=== PATIENT | male | born 1935 | race Caucasian/White ===

== ENCOUNTER 2018-08-16 20:07 | Inpatient (IN) | payer MEDICARE, MEDICAID ==
[~2018-08-16] VITALS: Ht 177.8 cm; Wt 98.4 kg
[~2018-08-16 20:07] MED LIST: A-CARO-2525000 UNIT PO; ATENOLOL; ATENOLOL 25 MG25 M1 PO; ATENOLOL 25MG T25 M1; BLOOD PRESSURE MED; CALCIUM 600 +1 EAC5 PO; CHOLESTEROL MED?; FIBER350 GM; FISHOIL PO; GLIPIZIDE 10 MG10 MG PO; GLUCOPHAGE1000 MG; GLUCOTROL10 MG; NUTRITIONAL SUPPLEME; PLAVIX 75 MG TA75 MG; PRAVACHOL40 MG PO; PREVACID 30MG C30 M1 PO; VITAMIN E400 UNIT PO; VITAMINC500 PO
[2018-08-16 20:17] VITALS: BP 163/79
[2018-08-16] MEDS ORDERED: VITAMIN D31000 UNI2 PO (20:23)
[2018-08-16] MEDS ORDERED: TRAZODONE HCL50 MG PO (20:24)
[2018-08-16] MEDS ORDERED: ATIVAN0.5 MG PO (20:28)
[2018-08-16] MEDS ORDERED: TYLENOL325 MG PO (20:28)
[2018-08-16] MEDS ORDERED: LASIX 20 MG TAB20 MG PO (20:29)
[2018-08-16] MEDS ORDERED: PEPCID20 MG PO (20:29)
[2018-08-16 20:49] LABS: HEMATOCRIT 41.5 % (42.0-52.0); HEMOGLOBIN 13.6 gm/dL (14.0-18.0); MCH 28.8 pg (26.0-34.0); MCHC 32.6 g/dL (28.0-37.0); MCV 88.3 fL (80.0-100.0); MPV 6.8 fl. (7.2-11.1); NUCLEATED RBCS 0 /100WBC; PLATELET COUNT* 269 thou/uL (150-400); RDW-CV 13.9 % (10.5-14.5); WBC 15.2 thou/uL (4.0-11.0)
[2018-08-16 20:59] LABS: APTT 27.3 Seconds (25.0-31.3)
[2018-08-16 21:00] LABS: URINE BILIRUBIN NEGATIVE (Negative); URINE BLOOD 1+ (Negative); URINE CLARITY CLEAR; URINE COLOR YELLOW; URINE GLUCOSE-RANDOM 1+ (Negative); URINE KETONES NEGATIVE (Negative); URINE LEUKOCYTES-REFLEX NEGATIVE (Negative); URINE NITRITE-REFLEX NEGATIVE (Negative); URINE PROTEIN 1+ (Negative)
[2018-08-16 21:10] LABS: ANION GAP 11 mmol/L (7-16); BUN 17 mg/dL (7-18); CALCIUM 8.4 mg/dL (8.5-10.1); CHLORIDE 96 mmol/L (98-107); CO2 25 mmol/L (21-32); CREATININE 1.3 mg/dL (0.6-1.3); GLUCOSE 191 mg/dL (70-99); POTASSIUM 4.7 mmol/L (3.5-5.1); SODIUM 132 mmol/L (136-145)
[2018-08-16 21:18] LABS: ALBUMIN 3.4 g/dL (3.4-5.0); ALKALINE PHOSPHATASE 86 U/L (46-116); NT-PRO BRAIN NAT PEPTIDE 197 pg/mL (<300); SGOT 27 U/L (15-37); SGPT 27 U/L (30-65); TOTAL BILIRUBIN 0.5 mg/dL (<0.1-1.0); TROPONIN-I LEVEL <0.06 ng/mL (<0.06)
[2018-08-16 21:24] LABS: CASTS None Seen /LPF (None Seen); SQUAMOUS 0-3 Few /LPF (0-3)
[2018-08-16 21:25] LABS: URINE RBC 3-10 Few /HPF (0-2); URINE WBC-REFLEX 0-5 Rare /HPF (0-5)
[2018-08-16 21:26] LABS: BACTERIA-REFLEX 1-9 Few /HPF (None Seen)
[2018-08-16 21:27] LABS: CRYSTALS None Seen /LPF (None Seen); RENAL EPITHELIAL CELLS 0-3 Few /LPF (None Seen); TRANSITIONAL EPITHEL CELL 0-3 Few /LPF (None Seen)
[2018-08-16 21:30] LABS: ABSOLUTE EOSINOPHILS 0.2 thou/uL (0.0-0.7); ABSOLUTE LYMPHOCYTES 0.8 thou/uL (0.8-5.3); ABSOLUTE MONOCYTES 0.5 thou/uL (0.0-1.2); ABSOLUTE NEUTROPHILS 13.8 thou/uL (1.6-8.1)
[2018-08-16 21:31] LABS: PLATELET ESTIMATE ADEQUATE
[2018-08-16 23:20] VITALS: BP 116/95
[2018-08-17] VITALS (7 sets, daily range): BP systolic 90–120; BP diastolic 48–60
[2018-08-17] MEDS ORDERED: LANTUS SUBQ (07:56)
[2018-08-17] MEDS ORDERED: ASPIR 8181 M1 PO (07:57)
[2018-08-17] MEDS ORDERED: MILK OF MA400 MG/5 M PO (07:59)
[2018-08-17] MEDS ORDERED: CAL-GEST200 MG PO (07:59)
[2018-08-17] MEDS ORDERED: [UNRECOGNIZED DRUG - OTHER] PO (08:01)
--- NOTE | 2018-08-17 08:08 | NUR ---
PT TO FLOOR APROX 2340, AND ASSUMED CARE. PT ALERT TO SELF ONLY. PT IMPULSIVE AND REMOVES HEART MONITOR AND IV. REDNESS AND DRY SKIN WARM TO TOUCH NOTED ON BILAT ANKLES. VITALS WNL. 2-4L O2 NC. BED REST. SEE MAR. SEE CHARTING. FALL PRECAUTIONS IN PLACE. HOURLY ROUNDING FOR SAFETY.
--- NOTE | 2018-08-17 13:06 | EKG ---
[place] [address] ELECTROCARDIOGRAM REPORT Name: ARLENE GONZALEZ Room: [address] ADM IN .R.#: [id number] Admission: 08/16/18 Attend Phys: Alan Murillo Discharge: Date of : 33 Report #: [id number] THIS REPORT FOR: //name// [facility] ED Test Date: 2018-08-16 Test Time: 21:09:20 Pat Name: ARLENE DOS SANTOSBerkley Department: Room: [facility] Gender: M Microphone Operator: BEATRICE : 1935 Requested By: Russell Addison Order Number: [id number] MD: Franklin Uribe Measurements Intervals [place] Rate: 124 P: -1 [place]: 139 QRS: -39 QRSD: 108 T: 69 QT: 323 QTc: 464 Interpretive Statements Sinus tachycardia Ventricular premature complex Left axis deviation Abnormal R-wave progression, late transition Borderline repolarization abnormality Compared to ECG 01/20/2011 05:07:15 Ventricular premature complex(es) now present rate increased Electronically Signed On 08-17-2018 13:05:57 CDT by Franklin Uribe [email or web address] <ELECTRONICALLY SIGNED> By: Franklin Uribe MD, [facility] 08/17/18 1305 08 08 Franklin Uribe MD, [facility] /EPI
--- NOTE | 2018-08-17 15:24 | NUR ---
Spoke with Francine at [facility], Pt is a LTC resident there. Francine stated that Pt is normally more A&O, but currently Pt is A&Ox1 per nursing. Pt is wc bound, able to complete transfers with assist. Pt requires assist with all IADLS. Pt is able to feed himself. Pt has been declining over the past few months. Supportive son that is involved in POC. CM left message for Pt's son. Per Francine, son works during the day. [facility] is able to accept Pt back at discharge. Following.
--- NOTE | 2018-08-17 18:40 | NUR ---
RECEIVED REPORT FROM WILL RN. ASSUMED CARE OF PT AROUND 0730. PT DROWSY, BUT EASILY AROUSABLE. ORIENTED TO SELF ONLY. PLEASANT BUT CONFUSED AND FORGETFULL. PT VERY DISORIENTED THIS AM UPON WAKING - PULLED OUT HIS IV TWO SEPARATE TIMES AND TOOK HEART MONITOR OFF. EASY TO REDIRECT. PT FLAGGED POSITIVE FOR SEPSIS THIS AM - DR BAXTER NOTIFIED. PT ALREADY ON FLUIDS AND ANTIBIOTICS. NO NEW ORDERS RECEIVED. PT MADE M/S STATUS. AM ASSESSMENT AND VITALS COMPLETED CHARTED. IV TO RIGHT HAND INTACT AND INFUSING IVF. PT HAS DENIED PAIN OR DISCOMFORT THIS SHIFT. LOW GRADE TEMP TREATED WITH TYLENOL. PT BEING TURNED Q2HRS FOR COMFORT. ADMISSION PICS TAKEN OF LEFT ARM AND BILATERAL LEGS. FAMILY VISTED THIS EVENING. PT ASSISTED WITH MEALS - REQUIRES SET-UP. BP'S SOFT THIS AM, BUT CAME UP THROUGHOUT THE DAY. PT INCONTINENT OF URINE - PT CLEANED UP AND LINENS CHANGED NEEDED. PT HAS IMPROVED THROUGHOUT SHIFT, BECAME MORE ALERT. PT CURRENTLY RESTING IN BED. CALL LIGHT IS WITHIN REACH. HOURLY ROUNDING PERFORMED. FALL PRECAUTIONS IN PLACE. PT TO TRANSFER TO ROOM 110 AT SHIFT CHANGE. WILL CALL REPORT TO NIGHT RN.
--- NOTE | 2018-08-18 04:26 | NUR ---
PATIENT RESTING QUIETLY THIS AM ON HOURLY ROUNDS. LARGE EMESIS X1 AND NAUSEATED THROUGHOUT THE NIGHT. PHYSICIAN CONTACTED, ORDERS RECEIVED FOR ZOFRAN. ABDOMEN IS SOFT AND DISTENDED. DENIES PAIN. INCONTINENT OF URINE. VITALS STABLE ON ROOM AIR. WILL CONTINUE TO MONITOR.
[2018-08-18 11:10] VITALS: BP 165/92
[2018-08-18 16:32] VITALS: BP 147/76
--- NOTE | 2018-08-18 16:51 | NUR ---
ASSUMED CARE OF PATIENT AFTER MORNING REPORT. ALERT AND ORIENTED X4. ASSESSMENT COMPLETED AND CHARTED. VSS ON ROOM AIR. FLUIDS AND ANTIBIOTICS INFUSED ORDERED. PATIENT HAD NO COMPLAINTS OF PAIN, NAUSEA, OR SOA ON MORNING ASSESSMENT. PATIENT WORKED WELL WITH THERAPIES TODAY. PATIENTS RIGHT LOWER EXTREMITY DISPLAYS REDNESS, WARM TO THE TOUCH AND CAUSING PAIN TO THE PATIENT. DR BAXTER PAGED AND ULTRASOUND OF THE LOWER EXTREMITY ORDERED. AWAITING COMPLETION AND RESULTS. HOURLY ROUNDS MAINTAINED, CALL LIGHT WITHIN REACH. NURSING WILL CONTINUE TO MONITOR.
[2018-08-18 20:00] VITALS: BP 150/74
[2018-08-19 04:19] VITALS: BP 149/76
[2018-08-19 04:20] LABS: HEMATOCRIT 31.6 % (42.0-52.0); MCH 29.4 pg (26.0-34.0); MCHC 33.8 g/dL (28.0-37.0); MPV 7.2 fl. (7.2-11.1); RBC 3.63 mil/uL (4.50-6.00); RDW-CV 14.2 % (10.5-14.5); WBC 8.3 thou/uL (4.0-11.0)
[2018-08-19 04:34] LABS: ALBUMIN 2.2 g/dL (3.4-5.0); CALCIUM 8.1 mg/dL (8.5-10.1); CREATININE 1.3 mg/dL (0.6-1.3); MAGNESIUM 1.7 mg/dL (1.8-2.4); POTASSIUM 3.8 mmol/L (3.5-5.1); TOTAL BILIRUBIN 0.5 mg/dL (<0.1-1.0); TOTAL PROTEIN 5.3 g/dL (6.4-8.2)
[2018-08-19 04:40] LABS: HEMOGLOBIN 10.7 gm/dL (14.0-18.0)
--- NOTE | 2018-08-19 05:18 | NUR ---
PATIENT SLOWLY PROGRESSING TOWARDS. PT ABLE TO SLEEP THROUGHOUT SHIFT. BECAME INCREASINGLY COMFUSED AT NIGHT. PT PULLED OUT HIS IV. NEW IV STARTED. RECIEVED Q2H TURNS, FULL BED LINEN CHANGE. ORIENT TO SELF AND PLACE ONLY. WILL CONTINUE TO MONITOR. NO VOICED CONCERNED AT THIS TIME.
[2018-08-19 10:11] VITALS: BP 173/80
[2018-08-19 15:42] VITALS: BP 224/108
--- NOTE | 2018-08-19 15:43 | NUR ---
WOUND CARE NOTE: CONSULT RECEIVED FOR VENOUS STASIS BLE PATIENT WITH 2-3+ EDEMA TO BLE R WORSE THAN L. RIGHT LEG WITH REDNESS, WARM TO TOUCH. FEET ARE QUITE EDEMATOUS 3-4+ AND ARE DRY AND FLAKEY. PALPABLE PEDAL PULSES BILATERALLY. PATIENT CURRENTLY SITTING WITH BILATERAL LEGS ELEVATED IN RECLINER. CALF MEASUREMENT IS 34CM BILATERALL. MEASURED FOR SIZE F TUBIGRIPS. THESE WERE GIVEN TO PATIENT'S RN FOR PLACEMENT. RECOMMEND ELEVATE BLE DOUBLE LAYER TUBIGRIP-REMOVE AND REPLACE DAILY
--- NOTE | 2018-08-19 16:40 | NUR ---
ASSUMED CARE OF PATIENT AFTER MORNING REPORT AT APPROX 0720. ALERT AND ORIENTED X 2-3, SOME FORGETFULNESS BUT NOT IMPULSIVE. ASSESSMENT COMPLETED AND CHARTED. VSS ON ROOM AIR. NO COMPLAINTS OF NAUSEA, PAIN, OR SOA THIS SHIFT. BLOOD SUGARS HAVE BEEN GOOD TODAY, NOT REQUIRING INSULIN THIS SHIFT. PATEINTS BLOOD PRESSURE WAS HIGH 224/108. PAGED DR BAXTER AND GOT AN ORDER FOR CATAPRESS, JUST GAVE THIS AND WILL RECHECK BP. TUBIGRIPS APPLIED TO BILAT LOWER EXTREMITIES THIS AFTERNOON. PATIENT RESTING IN THE CHAIR AT THIS TIME. HOURLY ROUNDS MAINTAINED, CALL LIGHT IN REACH, NURSING WILL CONTINUE TO MONITOR.
[2018-08-19 18:55] VITALS: BP 197/98
[2018-08-19 20:00] VITALS: BP 182/86
[2018-08-19 23:30] VITALS: BP 137/60
[2018-08-20 03:51] VITALS: BP 105/45
[2018-08-20 07:40] VITALS: BP 144/74
--- NOTE | 2018-08-20 07:59 | NUR ---
Oriented x 2 and was cooperative but not exactly seemingly pleased with staff at start of shift. He has had a very poor appetite, blood sugars have only been about 90's. 1/2 lantus dose given last evening. He is incontinent of bowel and bladder and has been changed and turned, skin is intact on bottom. BP was elevated and clonidine was ordered, it has improved, clonidine was held this am. I spoke with patient's son last eveing about his confusion and temperment. I explained that sometimes older patient's get confused at bedtime, the son said this was new. Daytime nurse did call digestion operator doctor but no new orders were recieved. The son was also upset about something he thought he overheard, it was reported to state tested nursing assistant. Patient is alert this am and very cooperative and pleasant.
[2018-08-20] MEDS ORDERED: IPRAT-ALBUT 0.5-3 ML INH (09:25)
[2018-08-20] MEDS ORDERED: KLOR-CON 1010 MEQ PO (09:25)
[2018-08-20] MEDS ORDERED: CLONIDINE0.1 PO (09:25)
[2018-08-20] MEDS ORDERED: LEVAQUIN 500 M500 M1 PO (09:25)
[2018-08-20 11:11] VITALS: BP 144/74
--- NOTE | 2018-08-20 11:15 | NUR ---
PT.BEING DISCHARGED TODAY BACK TO [facility]. HE HAS SKILLED ORDERS. FAXED DISCHARGE SUMMARY,WOUND NURSE NOTE AND WOUND CARE ORDER TO [phone]. NOTIFIED [facility]. THEY DO NOT HAVE TRANSPORTATION TODAY. CM SET UP WC VAN WITH [facility] TRANSPORTATION FOR 1:00-1:30. SISTER AND MARK IN ROOM. NOTIFIED THEM THAT PT.GOING BACK TO [place] TODAY. CM ALSO CALLED [facility]. LEFT MESSAGE. CHART COPIED BY Zeenat STALLWORTH RN WILL CALL REPORT.
[2018-08-20 13:41] VITALS: BP 144/74
--- NOTE | 2018-08-20 15:01 | NUR ---
PATIENT HAS BEEN ALERT AND ORIENTED TODAY. UP WITH MAX ASSIST OF TWO. VITAL SIGNS STABLE ON ROOM AIR TODAY. NO COMPLAINTS OF ANY PAIN TODAY. PATIENT IS BEING DISCHARGED TODAY BACK TO [facility]. REPORT GIVEN TO DANIELLE WITH QUESTIONS ANSWERED FOR PATIENT. PATIENT LEFT VIA WHEEL CHAIR WITH TRANSPORTER BACK TO HALF-WAY.
== END 2018-08-20 14:00 | DRG 193 ==
LOC: M.ERS 20:07 → M.2W 22:04 → M.TBA-ER 22:04 → M.2W 23:16 → M.ORTHSURG 08-17 19:12
PROVIDERS: Emergency Medicine Emergency Medical Services; Internal Medicine; ADMIT Internal Medicine
DX: J18.9 Pneumonia, unspecified organism (principal); G92 Toxic encephalopathy; E87.2 Acidosis; R65.10 Systemic inflammatory response syndrome (SIRS) of non-infectious origin without acute organ dysfunction; I10 Essential (primary) hypertension; E11.9 Type 2 diabetes mellitus without complications; K21.9 Gastro-esophageal reflux disease without esophagitis; F03.90 Unspecified dementia, unspecified severity, without behavioral disturbance, psychotic disturbance, mood disturbance, and anxiety; Y95 Nosocomial condition; I87.8 Other specified disorders of veins; Z86.73 Personal history of transient ischemic attack (TIA), and cerebral infarction without residual deficits; Z90.49 Acquired absence of other specified parts of digestive tract; Z79.899 Other long term (current) drug therapy; Z79.4 Long term (current) use of insulin; Z79.82 Long term (current) use of aspirin

== ENCOUNTER 2018-12-04 16:04 | Emergency (ER) | payer MEDICARE, MEDICAID ==
[~2018-12-04] VITALS: Ht 177.8 cm; Wt 95.7 kg
[~2018-12-04 16:04] MED LIST changes: +ASPIR 8181 M1 PO; +ATIVAN0.5 MG PO; +CAL-GEST200 MG PO; +CLONIDINE0.1 PO; +IPRAT-ALBUT 0.5-3 ML INH; +KLOR-CON 1010 MEQ PO; +LANTUS SUBQ; +LASIX 20 MG TAB20 MG PO; +LEVAQUIN 500 M500 M1 PO; +MILK OF MA400 MG/5 M PO; +PEPCID20 MG PO; +TRAZODONE HCL50 MG PO; +TYLENOL325 MG PO; +VITAMIN D31000 UNI2 PO; +[UNRECOGNIZED DRUG - OTHER] PO
[2018-12-04] MEDS ORDERED: LANTUS SUBQ (16:08)
[2018-12-04] MEDS ORDERED: ARTIFICIAL TEA1 EACH OPHTHALMIC (16:10)
[2018-12-04 16:31] LABS: ABSOLUTE EOSINOPHILS 0.3 thou/uL (0.0-0.7); ABSOLUTE LYMPHOCYTES 1.3 thou/uL (0.8-5.3); ABSOLUTE MONOCYTES 0.6 thou/uL (0.0-1.2); ABSOLUTE NEUTROPHILS 4.1 thou/uL (1.6-8.1); BASOPHILS 0.2 %; EOSINOPHILS 4.6 %; LYMPHOCYTES 20.3 %; MCHC 33.3 g/dL (28.0-37.0); MCV 87.1 fL (80.0-100.0); MONOCYTES 9.9 %; MPV 7.1 fl. (7.2-11.1); NUCLEATED RBCS 0 /100WBC; PLATELET COUNT* 274 thou/uL (150-400); RBC 4.82 mil/uL (4.50-6.00); RDW-CV 14.5 % (10.5-14.5); WBC 6.3 thou/uL (4.0-11.0)
[2018-12-04 16:35] LABS: CALCIUM 9.3 mg/dL (8.5-10.1); CREATININE 1.5 mg/dL (0.6-1.3); POTASSIUM 4.2 mmol/L (3.5-5.1)
[2018-12-04 16:40] LABS: ALBUMIN 3.9 g/dL (3.4-5.0); TOTAL BILIRUBIN 0.4 mg/dL (<0.1-1.0)
[2018-12-04 16:46] LABS: ALCOHOL < 10 mg/dL (<10); SALICYLATE < 2.8 mg/dL (2.8-20.0)
[2018-12-04 16:47] LABS: ACETAMINOPHEN < 2 ug/mL (10-30)
[2018-12-04 17:31] LABS: URINE BILIRUBIN NEGATIVE (Negative); URINE BLOOD NEGATIVE (Negative); URINE CLARITY CLEAR; URINE COLOR YELLOW; URINE GLUCOSE-RANDOM NEGATIVE (Negative); URINE KETONES NEGATIVE (Negative); URINE LEUKOCYTES-REFLEX NEGATIVE (Negative); URINE NITRITE-REFLEX NEGATIVE (Negative); URINE PROTEIN NEGATIVE (Negative); URINE UROBILINOGEN 0.2 E.U./dl (0.2-1.0)
[2018-12-04 17:41] LABS: AMP/METHAMP Negative (Negative); BARBITURATES Negative (Negative); BENZODIAZEPINES Negative (Negative); COCAINE Negative (Negative); METHADONE Negative (Negative); OPIATES Negative (Negative); PCP Negative (Negative); THC Negative (Negative)
[2018-12-04 21:25] VITALS: BP 163/75
== END 2018-12-04 21:33 | disposition still patient (30) ==
LOC: M.ERS 16:04
PROVIDERS: Emergency Medicine Emergency Medical Services
DX: F03.90 Unspecified dementia, unspecified severity, without behavioral disturbance, psychotic disturbance, mood disturbance, and anxiety (principal); F32.9 Major depressive disorder, single episode, unspecified; E11.9 Type 2 diabetes mellitus without complications; I10 Essential (primary) hypertension; K21.9 Gastro-esophageal reflux disease without esophagitis; Z90.49 Acquired absence of other specified parts of digestive tract; Z86.73 Personal history of transient ischemic attack (TIA), and cerebral infarction without residual deficits; Z79.4 Long term (current) use of insulin; Z79.899 Other long term (current) drug therapy

== ENCOUNTER 2019-04-17 16:26 | Inpatient (IN) | payer MEDICARE, MEDICAID ==
[~2019-04-17] VITALS: Ht 177.8 cm; Wt 90.7 kg
--- NOTE | ~2019-04-17 | PROC ---
[address] [address] PROCEDURE REPORT Name: ARLENE GONZALEZ Room: [address] IN .R.#: [id number] Admission: 04/17/19 Attend Phys: Nilo Lala MD Discharge: Date of : 34 Report #: [id number] THIS REPORT FOR: //name// For GI report, please see the Provation report in Perceptive 7 content. By: 0704Medical Records Staff JANE /SHANTHI
[~2019-04-17 16:26] MED LIST changes: +ARTIFICIAL TEA1 EACH OPHTHALMIC; -ASPIR 8181 M1 PO; +ST. JOSEPH ASPI81 MG PO
[2019-04-17 16:28] VITALS: BP 138/57
[2019-04-17 17:01] LABS: HEMATOCRIT 41.9 % (42.0-52.0); HEMOGLOBIN 14.2 gm/dL (14.0-18.0); MCH 30.1 pg (26.0-34.0); MCHC 33.9 g/dL (28.0-37.0); MCV 88.7 fL (80.0-100.0); MPV 6.8 fl. (7.2-11.1); NUCLEATED RBCS 0 /100WBC; PLATELET COUNT* 286 thou/uL (150-400); RBC 4.72 mil/uL (4.50-6.00); RDW-CV 14.2 % (10.5-14.5); WBC 8.4 thou/uL (4.0-11.0)
[2019-04-17] MEDS ORDERED: ATENOLOL 50MG T50 M1 PO (17:03)
[2019-04-17] MEDS ORDERED: WELLBUTRIN XL150 MG PO (17:04)
[2019-04-17] MEDS ORDERED: BRINTELLIX10 MG PO (17:06)
[2019-04-17 17:15] LABS: ANION GAP 8 mmol/L (7-16); BUN 36 mg/dL (7-18); CALCIUM 9.4 mg/dL (8.5-10.1); CHLORIDE 97 mmol/L (98-107); CO2 31 mmol/L (21-32); CREATININE 1.8 mg/dL (0.6-1.3); GLUCOSE 54 mg/dL (70-99); POTASSIUM 4.2 mmol/L (3.5-5.1); PROTIME 10.4 Seconds (9.20-11.50); SODIUM 136 mmol/L (136-145)
[2019-04-17 17:30] LABS: ALKALINE PHOSPHATASE 71 U/L (46-116); NT-PRO BRAIN NAT PEPTIDE 2520 pg/mL (<300); SGOT 38 U/L (15-37); SGPT 41 U/L (30-65); TOTAL BILIRUBIN 1.4 mg/dL (<0.1-1.0); TOTAL PROTEIN 7.5 g/dL (6.4-8.2); TROPONIN-I LEVEL <0.06 ng/mL (<0.06)
[2019-04-17 17:37] LABS: ABSOLUTE LYMPHOCYTES 0.7 thou/uL (0.8-5.3); ABSOLUTE MONOCYTES 0.3 thou/uL (0.0-1.2); ABSOLUTE NEUTROPHILS 7.4 thou/uL (1.6-8.1)
[2019-04-17 17:39] LABS: PLATELET ESTIMATE ADEQUATE
--- NOTE | 2019-04-17 18:57 | NUR ---
ASSUMMED CARE OF PATIENTS
--- NOTE | 2019-04-17 19:14 | NUR ---
DISCUSSED BED SITUATION WITH SIMONIZER LEADED GLASS INSTALLER STATES THAT THERE CURRENTLY AREN'T BEDS AVAILABLE IN HOUSE. PLANS WILL BE FOR BOARDING PTS.
[2019-04-17 20:15] VITALS: BP 109/32
[2019-04-17 20:24] VITALS: BP 117/72
[2019-04-18] VITALS: BP 126/59
[2019-04-18 04:00] VITALS: BP 131/63
[2019-04-18 04:57] LABS: ABSOLUTE LYMPHOCYTES 0.6 thou/uL (0.8-5.3); ABSOLUTE MONOCYTES 0.9 thou/uL (0.0-1.2); ABSOLUTE NEUTROPHILS 8.2 thou/uL (1.6-8.1); BASOPHILS 0.1 %; HEMATOCRIT 33.6 % (42.0-52.0); LYMPHOCYTES 5.9 %; MCH 30.1 pg (26.0-34.0); MCV 88.6 fL (80.0-100.0); MONOCYTES 9.3 %; NUCLEATED RBCS 0 /100WBC; PLATELET COUNT* 252 thou/uL (150-400); POLYS 84.7 %; RBC 3.79 mil/uL (4.50-6.00); RDW-CV 14.1 % (10.5-14.5); WBC 9.7 thou/uL (4.0-11.0)
[2019-04-18 05:08] LABS: CALCIUM 7.6 mg/dL (8.5-10.1); CREATININE 1.5 mg/dL (0.6-1.3); POTASSIUM 3.5 mmol/L (3.5-5.1)
[2019-04-18 05:13] LABS: HEMOGLOBIN 11.4 gm/dL (14.0-18.0)
[2019-04-18 08:00] VITALS: BP 126/61
--- NOTE | 2019-04-18 08:25 | NUR ---
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 HE IS ABLE TO COMMUNICATE HIS NEEDS TO STAFF EFFECTIVELY. HE HAS DENIED THE NEED FOR PAIN MEDICATION UP TO THIS TIME. HE WAS INITIALLY RELUCTANT TO KEEP O2 ON LAST NIGHT, BUT HAS BEEN BETTER AT KEEPING IN ON THIS MORNING. GI CONSULTED; HE HAS NOT HAD ANY EMESIS SINCE BEING ADMITTED UP TO 0700.
--- NOTE | 2019-04-18 11:00 | NUR ---
ASSUMED PT CARE AT 0730. AOX2, BEDREST, O2 SAT AT 90'S NC 2L. PT NPO, NIGHT PER BEDSIDE SWALLOW SHOW SOME ASPIRATION. FOR SPEECH THERAPY. PT FOR ACCU CHECK. PT IV ACCESS L HAND, FLUIDS RUNNING. FOR U/A. PT HAS BILATERAL FEET EDEMA. LUNG SOUND COARSE. PT HAS BLISTER ON LOWER L ABDOMEN. REDNESS ON THE BUTTOCKS NOTED. PT Q2 TURN. CALL LIGHT WITHIN REACH. HOURLY ROUNDING. WILL CONTINUE TO MONITOR. CALL LIGHT WITHIN REACH. WILL CONTINUE TO MONITOR.
[2019-04-18 11:41] LABS: URINE BILIRUBIN NEGATIVE (Negative); URINE BLOOD 2+ (Negative); URINE CLARITY CLEAR; URINE COLOR YELLOW; URINE GLUCOSE-RANDOM NEGATIVE (Negative); URINE KETONES TRACE (Negative); URINE LEUKOCYTES-REFLEX NEGATIVE (Negative); URINE NITRITE-REFLEX NEGATIVE (Negative); URINE PROTEIN 2+ (Negative)
[2019-04-18 11:54] LABS: SQUAMOUS 0-3 Few /LPF (0-3)
[2019-04-18 11:55] LABS: URINE WBC-REFLEX 0-5 Rare /HPF (0-5)
[2019-04-18 11:56] LABS: CASTS None Seen /LPF (None Seen); CRYSTALS None Seen /LPF (None Seen); MUCUS 0-3 Light strn/LPF (None Seen); URINE RBC 3-10 Few /HPF (0-2)
[2019-04-18 12:00] VITALS: BP 137/69
[2019-04-18 16:00] VITALS: BP 143/62
--- NOTE | 2019-04-18 18:06 | NUR ---
PT FOR EGD TOMORROW. NPO MIDNIGHT. FOR U/A. PT BLOOD GLUCOSE DROP TO 31, DEXTROSE 5OML IVPUSH GIVEN GLUCOSE NOW AT 165. PT STILL TRACING SR ON TELE. PT FOR SPEECH THERAPY. PT Q2 TURN. PT FOR ACCU CHECK. CALL LIGHT WITHIN REACH. WILL CONTINUE TO MONITOR.
[2019-04-18 21:09] VITALS: BP 135/70
[2019-04-19] VITALS: BP 137/76
[2019-04-19 04:00] VITALS: BP 168/82
[2019-04-19 04:59] LABS: ABSOLUTE EOSINOPHILS 0.2 thou/uL (0.0-0.7); ABSOLUTE LYMPHOCYTES 0.6 thou/uL (0.8-5.3); ABSOLUTE MONOCYTES 0.6 thou/uL (0.0-1.2); ABSOLUTE NEUTROPHILS 8.6 thou/uL (1.6-8.1); BASOPHILS 0.3 %; EOSINOPHILS 1.8 %; HEMATOCRIT 34.6 % (42.0-52.0); HEMOGLOBIN 11.6 gm/dL (14.0-18.0); LYMPHOCYTES 5.7 %; MCH 29.9 pg (26.0-34.0); MCHC 33.6 g/dL (28.0-37.0); MCV 89.2 fL (80.0-100.0); MONOCYTES 6.2 %; MPV 7.2 fl. (7.2-11.1); NUCLEATED RBCS 0 /100WBC; PLATELET COUNT* 272 thou/uL (150-400); RBC 3.87 mil/uL (4.50-6.00); RDW-CV 14.3 % (10.5-14.5)
[2019-04-19 05:04] LABS: ALBUMIN 2.1 g/dL (3.4-5.0); CREATININE 1.4 mg/dL (0.6-1.3); POTASSIUM 3.2 mmol/L (3.5-5.1); TOTAL BILIRUBIN 0.5 mg/dL (<0.1-1.0); TOTAL PROTEIN 6.1 g/dL (6.4-8.2)
[2019-04-19 06:09] LABS: ESR (SEDRATE) 97 mm/hr (0-20)
--- NOTE | 2019-04-19 07:58 | NUR ---
PT IS ABLE TO COMMUNICATE HIS NEEDS TO STAFF WITH SOME DIFFICULTY; HE IS CONFUSED AT TIMES AND IS NSLL-PD-LAOBRIE. HE HAS DENIED THE NEED FOR PAIN MEDICATION UP TO THIS TIME. HE IS NOW 1:1 SITTER AFTER REMOVING TELEMETRY AND IV ACCESS SEVERAL TIMES OVERNIGHT. HE HAS BEEN NPO SINCE MIDNIGHT FOR A POSSIBLE EGD LATER TODAY. BLOOD SUGAR WAS LOW THIS AM, AGAIN; D50 GIVEN; BLOOD GLUCOSE BACK INTO ACCEPTABLE RANGE WHEN RECHECKED.
[2019-04-19 08:00] VITALS: BP 173/78
[2019-04-19 10:22] VITALS: BP 162/69; BP 173/78
--- NOTE | 2019-04-19 12:35 | NUR ---
Pt out of room at D, will f/u later
--- NOTE | 2019-04-19 12:37 | EKG ---
[place] [address] ELECTROCARDIOGRAM REPORT Name: ARLENE GONZALEZ Room: [address] ADM IN .R.#: [id number] Admission: 04/17/19 Attend Phys: Nilo Lala MD Discharge: Date of : 34 Report #: [id number] THIS REPORT FOR: //name// [place] ED Test Date: 2019-04-17 Test Time: 16:39:51 Pat Name: ARLENE GONZALEZ Department: Room: [facility] Gender: M Oxygen Equipment Aide: TDOWNS : 1935 Requested By: Russell Addison Order Number: [id number] MD: Dejon Moya Measurements Intervals [place] Rate: 80 P: 44 [place]: 182 QRS: -39 QRSD: 109 T: 1 QT: 398 QTc: 460 Interpretive Statements Sinus rhythm Left axis deviation Abnormal R-wave progression, late transition Compared to ECG 08/16/2018 21:09:20 Sinus tachycardia no longer present Ventricular premature complex(es) no longer present Electronically Signed On 04-19-2019 12:37:15 CDT by Dejon Moya [email or web address] <ELECTRONICALLY SIGNED> By: Dejon Moya MD, [facility] 04/19/19 1237 1639 1639 Dejon Moya MD, [facility] /EPI
[2019-04-19 13:07] LABS: GLYCOHEMOGLOBIN (HGB A1C) 6.7 % (4.8-5.6)
[2019-04-19] MEDS ORDERED: IPRAT-ALBUT 0.5-3 ML INH (13:51)
[2019-04-19] MEDS ORDERED: KLOR-CON 1010 MEQ PO (13:51)
[2019-04-19] MEDS ORDERED: MUCINEX600 MG PO (13:52)
[2019-04-19] MEDS ORDERED: DEPAKOTE 250MG250 M1 PO (13:53)
--- NOTE | 2019-04-19 15:01 | NUR ---
ASSUMED PT CARE AT 0730. PT AOX2, CONFUSED. BEDREST. O2 SAT 90'S 2L NC. TRACING SR ON PRACTICE OR STUDENT TEACHER. PT FOR EGD TODAY. PT NPO. PT FOR SPEECH THERAPY. PT LUNG SOUND COARSE/CONGESTED. PT HAS BLISTERS ON L LOWER ABDOMEN. PT HAS RED BOTTOM. PT HAS BILATERAL FEET EDEMA. VSS, AM ASSESSMENT CHARTED. HOURLY ROUNDING, Q2 TURN. BED ALARM. CALL LIGHT WITHIN REACH. WILL CONTINUE TO MONITOR.
[2019-04-19 15:49] VITALS: BP 134/68
--- NOTE | 2019-04-19 16:15 | NUR ---
WOUND NURSE: PATIENT SEEN TO ADDRESS MULTIPLE BLISTERS AND ASSOCIATED REDNESS WITH WARMTH ON LEFT HIP, LEFT LOWER ABDOMEN, AND BILATERAL GROIN AREAS. MOST BULLAE INTACT WITH YELLOW [place]PAQUE FLUID. COUPLE OF RUPTURED BULLAE ON ABDOMEN. ALL LESIONS CLEANSED WITH WOUND CLEANSER AND GAUZE. APPLIED OPTIFOAM GENTLE AG TO ABDOMINAL LESIONS. APPLIED MOISTURE BARRIER TO INTACT SKIN ON GROIN AND HIP. APPLIED INNERDRY TO LESIONS IN GROING AND HIP AND COVERD HIP WITH ABDS. ETIOLOGY OF LESIONS UNK AND PATIENT UNABLE TO PROVIDE INFORMATION TO THEIR CAUSE. PATIENT IS NOT TEACHEABLE.
--- NOTE | 2019-04-19 19:08 | NUR ---
PT AOX2, DEEDELMIRAY. PT STILL ON SR ON TELE. PT O2 SAT MONITORED. PT HAD EDG. PT HAD BEDSIDE SPEECH THERAPY. PT NPO. PT FOR ACCU CHECK. PT WOUND DRESSING CHANGED ON L LOWER ABDOMEN. REDNESS ON THE BUTTOCKS NOTED. PT Q2 TURN. IV ACCESS INTACT. HOURLY ROUNDING, CALL LIGHT WITHIN REACH. WILL CONTINUE TO MONITOR.
[2019-04-19 21:06] VITALS: BP 147/70
[2019-04-20] VITALS: BP 118/51
[2019-04-20 04:00] VITALS: BP 160/78
[2019-04-20 05:13] LABS: HEMATOCRIT 31.9 % (42.0-52.0); HEMOGLOBIN 10.7 gm/dL (14.0-18.0); MCHC 33.6 g/dL (28.0-37.0); MCV 89.1 fL (80.0-100.0); NUCLEATED RBCS 0 /100WBC; PLATELET COUNT* 262 thou/uL (150-400); RBC 3.58 mil/uL (4.50-6.00); RDW-CV 14.4 % (10.5-14.5); WBC 7.2 thou/uL (4.0-11.0)
[2019-04-20 05:42] LABS: CALCIUM 8.1 mg/dL (8.5-10.1); CREATININE 1.2 mg/dL (0.6-1.3); POTASSIUM 3.5 mmol/L (3.5-5.1)
[2019-04-20 06:34] LABS: ABSOLUTE EOSINOPHILS 0.4 thou/uL (0.0-0.7); ABSOLUTE LYMPHOCYTES 0.6 thou/uL (0.8-5.3); ABSOLUTE MONOCYTES 0.4 thou/uL (0.0-1.2); ABSOLUTE NEUTROPHILS 5.8 thou/uL (1.6-8.1); METAMYELOCYTES 3 %; MYELOCYTES 1 %; PLATELET ESTIMATE ADEQUATE
[2019-04-20 07:30] VITALS: BP 127/67
--- NOTE | 2019-04-20 07:53 | NUR ---
PT IS ABLE TO COMMUNICATE HIS NEEDS TO STAFF WITH ONLY MINOR DIFFICULTY; HE IS CONFUSED AT TIMES AND IS [id number]. HE HAS DENIED THE NEED FOR PAIN MEDICATION UP TO THIS TIME. PT'S BLOOD GLUCOSE AT AN ACCEPTABLE LEVEL THIS AM. HE HAS BEEN NPO FOR ST AND A POSSIBLE VIDEO SWALLOW LATER TODAY.
[2019-04-20 12:30] VITALS: BP 182/80
--- NOTE | 2019-04-20 15:15 | NUR ---
CM completed initial assessment to discuss d/c plan. pt a&ox1. cm attempted to speak to family, no family present and pt asleep in room. cm contacted pt's dpoa, son, Los. Per Los, pt will return to LTC facility @ [facility]. pt has w/c at facilty and no longer ambulates d/t fall risk. pt is a total assist w/all ADL's. Francine @ [facility] contacted cm to ask about cause of blisters. per nurse, wound care nurse determined that pt's wounds are caused by "briefs." Francine notified by CM. CM to remain available to assist and follow as needed.
--- NOTE | 2019-04-20 17:06 | PATH ---
[address] [address] PATHOLOGY RPT PROCEDURE Name: JAXSON VICKERS Room: [address] IN [facility]#: [id number] Admission: 04/17/19 Date of : 34 Discharge: Report #: [id number] Path Case #: [id number] [facility] Accession Number: [id number] . 01 Material submitted: . PART A: stomach - PYLORIC CHANNEL INTESTINAL METAPLASIA PART B: esophagus - ESOPHAGEAL BIOPSY 37CM BARRETTS . 01 Clinical history: . None provided . 02 Diagnosis: A. Pyloric channel intestinal metaplasia: - Benign gastric antral/pyloric channel-type mucosa with moderate chronic inflammation typical of reactive gastropathy (chemical gastritis), with prominent intestinal metaplasia, negative for Helicobacter pylori organisms and dysplasia. . B. Esophageal biopsy 37 cm, Alatorre's: - Benign esophageal and Alatorre's types mucosa with moderate chronic inflammation typical of reflux, negative for dysplasia. (SELINA:sandra; 04/20/2019) . Special stain on A: H. pylori immuno QMS/04/20/2019 . 02 Electronically signed: . Roel Curry MD, Pathologist NPI- [id number] . 01 Gross description: . A. Received in formalin labeled "Jaxson Vickers, pyloric channel, intestinal metaplasia," are 2 segments of barrera soft tissue measuring 0.6 x 0.2 x 0.2 cm in aggregate dimensions and measuring 0.3 cm each in maximum dimension. The specimen is submitted entirely in cassette A1. . B. Received in formalin labeled "ChristinenicoleAdiel maynardett, esophageal biopsy 37 cm, Alatorre's," is a single segment of barrera soft tissue measuring 0.4 cm in maximum dimension. The specimen is entirely submitted in cassette B1. (TSD; 04/19/2019) TOB/TOB . 02 Pathologist provided ICD-10: K29.50, K31.9, K22.70, K20.9 . 02 CPT . 329002, 531726, W80430 Specimen Comment: A courtesy [place] of [place] [address] PATHOLOGY RPT PROCEDURE Name: JAXSON VICKERS Room: [address] IN ..#: [id number] Admission: 04/17/19 Date of : 34 Discharge: Report #: [id number] Path Case #: [id number] Specimen Comment: [phone], , . Specimen Comment: Report sent to ,DR STOREY / DR PARIKH Performed at: [address] [facility] [id number] [facility] [address], [place], [place] [id number] MD Zak Walker MD Phone: [phone] Performed at: [address] [facility] [address] [facility] [address] [place], [place] [id number] MD Roel Curry MD Phone: [phone]
[2019-04-20 19:50] VITALS: BP 171/88
--- NOTE | 2019-04-20 20:09 | NUR ---
ASSUMED PT CARE AT 0730. PT AOX2, O2 SAT AT 90'S 2L NC. TRACING SR ON HUMAN RESOURCES MANAGER MANUFACTURING. PT DENIES PAIN. PT LUNG SOUND COARSE. PT HAS BILATERAL FEET EDEMA. BLISTER ON THE L LOWER ABDOMEN, GROIN CLEANSE AND DRESSING INTACT. REDNESS ON THE BUTTOCKS NOTED. PT Q2 TURN. IV ACCESS INTACT. PT FOR VIDEO SWALLOW. PT ON MECHANICAL CHOP DIET, THIN LIQUIDS ON SPOON. PT INCONTINENT OF URINE. PT HOURLY ROUNDING. CALL LIGHT WITHIN REACH. WILL CONTINUE TO MONITOR.
[2019-04-21] VITALS: BP 126/53
[2019-04-21 04:00] VITALS: BP 161/77
--- NOTE | 2019-04-21 04:11 | NUR ---
RECIEVED REPORT AND ASSUMED CARE AT 1900. PERFORMANCE MAKEUP ARTIST IN PLACE. BP ELEVATED, PULSE TECH, OTHER THAN THAT VITAL SIGNS STABLE. PT BEDREST. PT DENIES ANY PAIN AT THIS TIME. ASSESSMENT COMPLETED. BED LOCKED, ALARM ON AND CALL LIGHT WITH REACH. FALL PRECAUTIONS IN PLACE. HOURLY ROUNDING DONE AND ALL NEEDS MET. NURSING WILL CONTINUE TO MONITOR.
[2019-04-21 05:34] LABS: ABSOLUTE EOSINOPHILS 0.2 thou/uL (0.0-0.7); ABSOLUTE LYMPHOCYTES 0.8 thou/uL (0.8-5.3); ABSOLUTE MONOCYTES 0.9 thou/uL (0.0-1.2); ABSOLUTE NEUTROPHILS 5.6 thou/uL (1.6-8.1); BASOPHILS 0.6 %; EOSINOPHILS 3.2 %; HEMATOCRIT 31.3 % (42.0-52.0); HEMOGLOBIN 10.6 gm/dL (14.0-18.0); LYMPHOCYTES 10.5 %; MCHC 33.8 g/dL (28.0-37.0); MCV 88.5 fL (80.0-100.0); MONOCYTES 11.6 %; MPV 6.9 fl. (7.2-11.1); NUCLEATED RBCS 0 /100WBC; PLATELET COUNT* 288 thou/uL (150-400); POLYS 74.1 %; RBC 3.53 mil/uL (4.50-6.00); RDW-CV 14.3 % (10.5-14.5); WBC 7.6 thou/uL (4.0-11.0)
[2019-04-21 06:00] LABS: CALCIUM 7.6 mg/dL (8.5-10.1); CREATININE 1.2 mg/dL (0.6-1.3); POTASSIUM 3.6 mmol/L (3.5-5.1); TOTAL BILIRUBIN 0.8 mg/dL (<0.1-1.0); TOTAL PROTEIN 5.7 g/dL (6.4-8.2)
[2019-04-21 08:10] VITALS: BP 152/59
[2019-04-21 12:00] VITALS: BP 171/80
[2019-04-21 16:00] VITALS: BP 172/82
--- NOTE | 2019-04-21 16:06 | NUR ---
PT PROGRESSING TOWARDS GOALS THIS SHIFT. VIDEO SWALLOW COMPLETED. REFER TO ST DIET RECOMMENDATIONS. PT HAS NO C/O PAIN THIS SHIFT. OXYGEN SATURATION >92% ON 2L/NC. UNABLE TO TITRATE. PT FREQUENTLY REMOVES NC D/T CONFUSION. MULTIPLE ATTEMPTS TO REORIENT. NO OTHER CONCERNS AT THIS TIME. CLWR. WCTM.
[2019-04-21 20:00] VITALS: BP 128/93
[2019-04-22] VITALS: BP 179/84
[2019-04-22 03:44] LABS: HEMATOCRIT 32.7 % (42.0-52.0); HEMOGLOBIN 11.1 gm/dL (14.0-18.0); MCH 29.9 pg (26.0-34.0); MCV 87.8 fL (80.0-100.0); MPV 6.6 fl. (7.2-11.1); RBC 3.72 mil/uL (4.50-6.00); WBC 10.8 thou/uL (4.0-11.0)
[2019-04-22 03:59] LABS: CALCIUM 8.2 mg/dL (8.5-10.1); CREATININE 1.2 mg/dL (0.6-1.3); MAGNESIUM 1.7 mg/dL (1.8-2.4); POTASSIUM 3.2 mmol/L (3.5-5.1)
[2019-04-22 04:00] VITALS: BP 171/77
--- NOTE | 2019-04-22 06:41 | NUR ---
ASSUMED PT CARE AT 1930. ASSESSMENT COMPLETED CHARTED. UNABLE TO MAKE NEEDS KNOWN. [id number] COMPLETED CHARTED. NO C/O PAIN OR DISCOMFORT. PT COUGHING SOME OF THE NIGHT WITH NO PRODUCTION NOTED. WILL CONTINUE TO MONITOR.
[2019-04-22 07:48] VITALS: BP 156/72
[2019-04-22 12:43] VITALS: BP 173/88
--- NOTE | 2019-04-22 16:13 | NUR ---
PT SOMEWHAT PROGRESSING TOWARDS GOALS THIS SHIFT. TOLERATING ORAL INTAKE WELL. PT UP TO CHAIR AT BEDSIDE USING ADELINA. NO OTHER CONCERNS AT THIS TIME. CLWR. WCTM.
[2019-04-22 16:28] VITALS: BP 165/91
[2019-04-22 20:00] VITALS: BP 135/69
[2019-04-23] VITALS: BP 153/81
[2019-04-23 04:53] VITALS: BP 142/68
--- NOTE | 2019-04-23 07:25 | NUR ---
CHANGE OF SHIFT, BEDSIDE REPORT GIVEN PATIENT SEE AT BEDSIDE, IN BED ASLEEP ASSUMED PATIENT CARE
[2019-04-23] MEDS ORDERED: AUGMENTIN 875-1 EACH PO (09:48)
[2019-04-23] MEDS ORDERED: PREDNISONE 20 M20 MG PO (09:48)
[2019-04-23] MEDS ORDERED: PANTOPRAZOLE SO40 M1 PO (09:48)
[2019-04-23] MEDS ORDERED: BENZONATATE100 MG PO (09:48)
--- NOTE | 2019-04-23 11:04 | NUR ---
Pt discharging back to [facility] today, skilled ordered. Faxed dc orders. Chart copied. Nurse report number is [phone]. Left a VM for Pt's son regarding discharge.
[2019-04-23 13:48] VITALS: BP 142/68
--- NOTE | 2019-04-23 14:45 | NUR ---
PATIENT DISCAHRGED TO SNF LEFT VIA AMBULANCE CART IV AND HEART MONITOR REMOVED PERSOANL BELONGINGS RETURNED REPORT GIVEN TO MAGGIE IRVING COPIES OF DISCAHRGE SENT WITH
--- NOTE | 2019-04-24 12:32 | CON ---
[address] [address] CONSULTATION Name: ARLENE GONZALEZ Room: [address] IN M.R.#: [id number] Admission: 04/17/19 Attend Phys: Nilo Lala MD Discharge: 04/23/19 Date of : 34 Report #: [id number] THIS REPORT FOR: //name// CC: Nilo Canales DATE OF SERVICE: 04/18/2019 REFERRING PHYSICIAN: Nilo Lala MD REASON FOR CONSULTATION: Coffee-ground emesis. IMPRESSION: 1. 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 2. Mental status changes which appear to be improved from admission. 3. Mild anemia. 4. Possible aspiration pneumonia. 5. Chronic kidney disease, stage 3. RECOMMENDATIONS: 1. I called this morning and talked to the nurse and asked him to begin the patient on Protonix 40 mg IV q. 12 hours. 2. We will schedule the patient for an upper endoscopy done tomorrow. I have left a voice message for the patient's son and durable power of commercial litigation attorney, Los, to contact me regarding his dad and my recommendation to proceed with the same. I have also written orders for the same. 3. If the patient does undergo video swallow study, I would like for that to be done on Friday, so we can proceed with upper endoscopy tomorrow in the late morning. I have discussed the plans with the patient as well and I will discuss this with the patient's son as well. HISTORY OF PRESENT ILLNESS: This is a pleasant 83-year-old white male who came to the emergency room with mental status changes and was sent to the emergency room for coffee-ground emesis and mental status changes with associated dehydration. He has not been acting itself. The patient is normally lucid and happy and active and was acting lethargic when he came to the emergency room. Since he has been hydrated, he is much more like himself. It was noted that the patient's mental status has decreased over the last few days and the nurse says blood sugar was also low. He is not eating very well. He is now more awake, but still not the most reliable historian. Denies any complaints of any dysphagia, odynophagia, but does have problem with chronic acid reflux. He is currently only on famotidine at the long term for the [place] [address] CONSULTATION Name: ARLENE GONZALEZ Room: [address] IN M.R.#: [id number] Admission: 04/17/19 Attend Phys: Nilo Lala MD Discharge: 04/23/19 Date of : 34 Report #: [id number] recall throwing up any coffee-ground material. Denies any history of any melena or hematochezia. Denies any abdominal pain or any associated weight loss. He is admitted to the hospital through the emergency room for further evaluation and treatment. ALLERGIES: None. MEDICATIONS: Include Lantus insulin, lorazepam, acetaminophen, aspirin, atenolol, bupropion, divalproex, famotidine 20 mg at bedtime, furosemide, glipizide, potassium, trazodone, Trintellix, vitamin D3 and ipratropium bromide tamiko treatments. PAST MEDICAL HISTORY: Remarkable for underlying, hypertension, diabetes, hyperlipidemia. He had previous stroke, has chronic reflux, short segment Alatorre's esophagus. He has anxiety and depression as well. He underwent a cholecystectomy in 2007 and had complicating common bile duct stones, for which he had to have an ERCP performed by me back in 2008 with removal of common duct stone. There is also history that he may have some element of dementia. SOCIAL HISTORY: The patient currently lives in [facility], does not smoke or drink. FAMILY HISTORY: Not applicable. PHYSICAL EXAMINATION: GENERAL: The patient is a pleasant 83-year-old gentleman who is awake and alert. CARDIOPULMONARY: Revealed a regular rate and rhythm. LUNGS: Clear. ABDOMEN: Soft and not tender. No rebound or guarding noted. LABORATORY DATA: From today revealed a white count of 9.7, hemoglobin 11.4, platelet count 252,000. On admission, his hemoglobin was 14.2. The patient was definitely dehydrated. MCV is 88.6 and RDW 14.1. His sodium 137, potassium 3.5, chloride 101, bicarb 25, BUN 35, creatinine 1.5. His GFR is only 45. On admission, his bilirubin 1.4, alkaline phosphatase was 71, AST 38, ALT 41, albumin 3.0. IMAGING DATA: The patient had a chest x-ray done yesterday, which revealed patchy interstitial fibrosis, mild cardiomegaly and there appears to be a left lower lobe infiltrate. DISCUSSION: At the present time, the patient appears to be hemodynamically stable to undergo endoscopic evaluation of his upper GI tract. I have left a message for his son and durable power of commercial litigation attorney to contact me regarding the same. Otherwise, we will have the nursing staff contact him to get consent for [address] [place] [address] CONSULTATION Name: ARLENE GONZALEZ Room: [address] IN M.R.#: [id number] Admission: 04/17/19 Attend Phys: Nilo Lala MD Discharge: 04/23/19 Date of : 34 Report #: [id number] an EGD be done tomorrow. I have discussed these plans with the patient as well and we will make further recommendations after his upper endoscopy. <ELECTRONICALLY SIGNED> By: Lazarus Lawrence DO 04/24/19 1232 1510 [id number] Lawrence DO /nt
== END 2019-04-23 15:00 | DRG 177 ==
LOC: M.ERS 16:26 → M.2W 17:49 → M.TBA-ER 17:49 → M.2W 20:07
PROVIDERS: Emergency Medicine Emergency Medical Services; Internal Medicine; Internal Medicine Gastroenterology; ADMIT Internal Medicine
PROC: 0DB68ZX Excision of Stomach, Via Natural or Artificial Opening Endoscopic, Diagnostic (ICD-10-PCS; principal; 2019-04-19)
PROC: 0DB58ZX Excision of Esophagus, Via Natural or Artificial Opening Endoscopic, Diagnostic (ICD-10-PCS; principal; 2019-04-19)
DX: J69.0 Pneumonitis due to inhalation of food and vomit (principal); J96.01 Acute respiratory failure with hypoxia; G93.41 Metabolic encephalopathy; N17.0 Acute kidney failure with tubular necrosis; K92.2 Gastrointestinal hemorrhage, unspecified; K21.9 Gastro-esophageal reflux disease without esophagitis; F03.90 Unspecified dementia, unspecified severity, without behavioral disturbance, psychotic disturbance, mood disturbance, and anxiety; D64.9 Anemia, unspecified; N18.3 Chronic kidney disease, stage 3 (moderate); E11.22 Type 2 diabetes mellitus with diabetic chronic kidney disease; E78.5 Hyperlipidemia, unspecified; F32.9 Major depressive disorder, single episode, unspecified; F41.9 Anxiety disorder, unspecified; K21.0 Gastro-esophageal reflux disease with esophagitis; K44.9 Diaphragmatic hernia without obstruction or gangrene; K22.70 Barrett's esophagus without dysplasia; I12.9 Hypertensive chronic kidney disease with stage 1 through stage 4 chronic kidney disease, or unspecified chronic kidney disease; R13.10 Dysphagia, unspecified; Z66 Do not resuscitate; E11.649 Type 2 diabetes mellitus with hypoglycemia without coma; T14.8XXA Other injury of unspecified body region, initial encounter; X58.XXXA Exposure to other specified factors, initial encounter; Y93.89 Activity, other specified; Y92.89 Other specified places as the place of occurrence of the external cause; Y99.8 Other external cause status; Z86.73 Personal history of transient ischemic attack (TIA), and cerebral infarction without residual deficits; Z90.49 Acquired absence of other specified parts of digestive tract; Z79.82 Long term (current) use of aspirin; Z79.899 Other long term (current) drug therapy; R11.2 Nausea with vomiting, unspecified

== ENCOUNTER 2019-04-30 19:37 | Inpatient (IN) | payer MEDICARE, MEDICAID ==
[~2019-04-30] VITALS: Ht 177.8 cm; Wt 85.9 kg
--- NOTE | ~2019-04-30 | H ---
[address] [address] HISTORY AND PHYSICAL Name: ARLENE GONZALEZ Room: [address]#: [id number] Admission: 04/30/19 Attend Phys: Franklin Uribe MD, F Discharge: 05/01/19 Date of : 34 Report #: [id number] THIS REPORT FOR: //name// For History and Physical please refer to the consultation note in the patient's medical record. By: 0556Medical Records Staff RONNY /SHANTHI
[~2019-04-30 19:37] MED LIST changes: +ATENOLOL 50MG T50 M1 PO; +AUGMENTIN 875-1 EACH PO; +BENZONATATE100 MG PO; +BRINTELLIX10 MG PO; +DEPAKOTE 250MG250 M1 PO; +MUCINEX600 MG PO; +PANTOPRAZOLE SO40 M1 PO; +PREDNISONE 20 M20 MG PO; +WELLBUTRIN XL150 MG PO
[2019-04-30 19:50] VITALS: BP 112/47
[2019-04-30 20:24] LABS: HEMATOCRIT 37.5 % (42.0-52.0); HEMOGLOBIN 12.3 gm/dL (14.0-18.0); MCH 29.8 pg (26.0-34.0); MCHC 32.7 g/dL (28.0-37.0); MCV 90.9 fL (80.0-100.0); MPV 7.3 fl. (7.2-11.1); NUCLEATED RBCS 0 /100WBC; PLATELET COUNT* 525 thou/uL (150-400); RBC 4.12 mil/uL (4.50-6.00); RDW-CV 14.7 % (10.5-14.5); WBC 13.6 thou/uL (4.0-11.0)
[2019-04-30 20:36] LABS: APTT 80.4 Seconds (25.0-31.3); INR 1.2; PROTIME 11.9 Seconds (9.20-11.50)
[2019-04-30 20:53] LABS: TROPONIN-I LEVEL 0.99 ng/mL (<0.06)
[2019-04-30 20:58] LABS: BE -4.4 mmol/L (-2 to +3); PCO2 26.3 mmHg (35.0-45.0); pH 7.458 (7.340-7.450)
[2019-04-30 21:05] LABS: ANION GAP 18 mmol/L (7-16); BUN 27 mg/dL (7-18); CALCIUM 9.4 mg/dL (8.5-10.1); CHLORIDE 100 mmol/L (98-107); CO2 21 mmol/L (21-32); CREATININE 1.6 mg/dL (0.6-1.3); GLUCOSE 347 mg/dL (70-99); POTASSIUM 5.3 mmol/L (3.5-5.1); SODIUM 139 mmol/L (136-145)
[2019-04-30 21:07] LABS: PO2 50.6 mmHg (75.0-100.0)
[2019-04-30 21:10] LABS: ALBUMIN 2.5 g/dL (3.4-5.0); ALKALINE PHOSPHATASE 117 U/L (46-116); CHOLESTEROL 203 mg/dL (<200); HDL CHOLESTEROL 29 mg/dL (>40); LDL CHOLESTEROL 149 mg/dL (<100); MAGNESIUM 1.6 mg/dL (1.8-2.4); SERUM ASSESSMENT CLEAR; SGOT 92 U/L (15-37); SGPT 78 U/L (30-65); TOTAL BILIRUBIN 0.7 mg/dL (<0.1-1.0); TRIGLYCERIDE 125 mg/dL (<150); VLDL 25 mg/dL (<40)
[2019-04-30 21:19] LABS: ABSOLUTE LYMPHOCYTES 0.5 thou/uL (0.8-5.3); ABSOLUTE MONOCYTES 0.5 thou/uL (0.0-1.2); ABSOLUTE NEUTROPHILS 12.5 thou/uL (1.6-8.1)
[2019-04-30 21:21] LABS: CLUMPED PLTS RARE; PLATELET ESTIMATE INCREASED
--- NOTE | 2019-05-03 14:08 | CARD ---
[address] [address] CARDIAC CATH REPORT Name: SOPHIE GONZALEZIRVIN Sanchez Room: [address] IN .R.#: [id number] Admission: 04/30/19 Attend Phys: Franklin Uribe MD, F Discharge: 05/01/19 Date of : 34 Report #: [id number] THIS REPORT FOR: //name// APPROVED REPORT Study performed: 04/30/2019 19:47:18 Patient Details Patient Status: ED Room #: The patient is a 83 year-old male Event Personnel Shanda Castro RN RN, Candis Kiran, Dale Liu (Rony Horner David Medical Nurse Procedures Performed [facility] c coronaries, DESx2 to RCA Indication STEMI , Dyspnea Risk Factors Hypertension, Diabetes Admission/Lab Medications/Medications given during procedure Glycoprotein IllbIlla Inhibitors, Heparin Unfract. Procedure Narrative The patient was brought emergently to the Cardiac Catheterization Laboratory and was prepped and draped in a sterile manner. The right femoral was infiltrated with 1% Lidocaine subcutaneous anesthesia. A Tecumseh 6 FR sheath was inserted into the right femoral artery. Coronary angiography was performed using coronary diagnostic catheters. The right coronary system was accessed and visualized with a Diagnostic catheter. The left coronary system was accessed and visualized with a Diagnostic catheter. The left ventricle was accessed and visualized with a Diagnostic catheter. Left ventricular/Aortic Valve gradient assessed via catheter pullback. The patient tolerated the procedure well and there were no complications associated with the procedure. There was no hematoma. Aterial and Venous line sutured in. Intraoperative Conscious [place]ation [place] [address] CARDIAC CATH REPORT Name: RAYABerkleyARLENE Room: [address]#: [id number] Admission: 04/30/19 Attend Phys: Franklin Uribe MD, F Discharge: 05/01/19 Date of : 34 Report #: [id number] Dose: 1968 mGy Contrast Type and Amount: Visipaque 110 ml Coronary Angiography The patient's coronary anatomy is right dominant. Diagnostic Cath Left Main 30% distal stenosis LAD 90% mid stenosis Diagonal 1 90% mid stenosis Circumflex 80% mid stenosis OM1 90% ostial stenosis Right Coronary 100% proximal acute occlusion Left Ventriculography Left Ventriculography was not performed. Hemodynamics The aortic pressure is 91/39 mmHg with a mean of 43 mmHg. The left ventricular pressure is 96/15 mmHg with a mean of mmHg. The left ventricular end diastolic pressure is 17 mmHg. There was no gradient across the aortic valve upon pullback. Pullback from the left ventricle to the aorta revealed no gradient across the aortic valve. PCI Technique Lesion Anticoagulation was achieved with Heparin. bolus of iv aggrastat given Percutaneous coronary intervention was performed on the proximal right coronary artery. The lesion stenosis prior to intervention was 100% with STEPHANIE 0 flow. A 6F JR 4.0 Guide Catheter was used to engage the rca ostium. A IG: BMW 190cm Interventional Guidewire was used to cross the lesion. BALLOON DILATION A Balloon catheter Trek RX 2.5 X 8 was inserted and inflated up to 12.00atm for 10seconds. Repeat angiography revealed the following post-dilatation results: 90% stenosis. Additional Inflation: 12.00atm for 6seconds. Additional Inflation: 12.00atm for 10seconds. Additional Inflation: 16 jelani for 12 seconds. Additional Inflation: 16 jelani for 8 seconds. STENT DEPLOYMENT A drug-eluting stent Xience Reena 2.16G75ea was inserted and inflated up to 14.00atm for 14seconds. Additional Inflation: 18.00atm for 13seconds. Additional Inflation: 20.00atm for 7seconds. [place] [address] CARDIAC CATH REPORT Name: ARLENE GONZALEZ Room: [address]#: [id number] Admission: 04/30/19 Attend Phys: Franklin Uribe MD, F Discharge: 05/01/19 Date of : 34 Report #: [id number] reflow noted with thrombus. Pronto catheter was inserted and coronary aspiration performed. The patient was given 2 doses ofr 200 mcg. IC adenosine. POST STENT DEPLOYMENT BALLOON DILATION A Balloon catheter NC Trek RX 3.0 X 15 was inserted and inflated up to 20.00atm for 18seconds. Additional Inflation: 22.00atm for 6seconds. Additional Inflation: 22.00atm for 6seconds. Additional Inflation 22.00 jelani for 7 seconds. Drug Eluting stent of 3.0 x 23 mm deployed in right coronary artery inflated up to 12 jelani for 9 sec. Additional Inflation: 12 jelani for 5 seconds. Additional Inflation: 18 jelani for 11 seconds. Additional Inflation: 18 jelani for 11 seconds. Final angiography reveals 0 % stenosis with STEPHANIE 2 flow. Conclusion 1. Acute occlusion of the rca 2. 90% stenosis of the mid lad, first diagonal, and first marginal artery. 3. successful placement of 2 drug eluting stents in the proximal rca, although slow flow persisted despite IC aspiration and IC adenosine. Recommendations Aggressive Medical Therapy <ELECTRONICALLY SIGNED> By: Franklin Uribe MD, [facility] 05/03/19 1408 1408 [id number] Uribe MD, FAC /INF
--- NOTE | 2019-05-03 16:44 | EKG ---
[place] [address] ELECTROCARDIOGRAM REPORT Name: ARLENE GONZALEZ Room: [address] DIS IN .R.#: [id number] Admission: 04/30/19 Attend Phys: Franklin Uribe MD, F Discharge: 05/01/19 Date of : 34 Report #: [id number] THIS REPORT FOR: //name// [facility] ED Test Date: 2019-04-30 Test Time: 19:53:20 Pat Name: ARLENE GONZALEZ Department: Room: [facility] Gender: M Mycologist: SHAE : 1935 Requested By: Kylah Shah Order Number: [id number] MD: Dejon Moya Measurements Intervals [place] Rate: 72 P: PA: QRS: -43 QRSD: 100 T: 111 QT: 422 QTc: 462 Interpretive Statements Sinus rhythm with 1st degree block with pac's LVH with secondary repolarization abnormality Inferior infarct, acute (RCA) Anterolateral infarct, recent or acute Probable RV involvement, suggest recording right precordial leads Baseline wander in lead(s) II,III,aVR,aVF Compared to ECG 04/17/2019 16:39:51 Left ventricular hypertrophy now present Myocardial infarct finding now present Electronically Signed On 05-03-2019 16:44:35 CDT by Dejon Moya [email or web address] <ELECTRONICALLY SIGNED> By: Dejon Moya MD, [facility] 05/03/19 1644 52 52 Dejon Moya MD, [facility] /EPI
--- NOTE | 2019-05-03 16:48 | EKG ---
[place] [address] ELECTROCARDIOGRAM REPORT Name: ARLENE GONZALEZ Room: [address] DIS IN .R.#: [id number] Admission: 04/30/19 Attend Phys: Franklin Uribe MD, F Discharge: 05/01/19 Date of : 34 Report #: [id number] THIS REPORT FOR: //name// [facility] Test Date: 2019-04-30 Test Time: 22:27:41 Pat Name: ARLENE GONZALEZ Department: Room: 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: CARMEN WHITMAN : 1935 Requested By: Kylah Shah Order Number: [id number] MD: Dejon Moya Measurements Intervals [place] Rate: 96 P: 0 [place]: 51 QRS: -43 QRSD: 99 T: 97 QT: 364 QTc: 460 Interpretive Statements Sinus rhythm First degree av block Abnormal R-wave progression, late transition LVH with secondary repolarization abnormality Inferior infarct, acute (RCA) Anterior ST elevation, probably due to LVH, consider injury Lateral leads are also involved Probable RV involvement, suggest recording right precordial leads Compared to ECG 04/17/2019 16:39:51 Left ventricular hypertrophy now present Early repolarization now present Myocardial infarct finding now present ST (T wave) deviation now present Electronically Signed On 05-03-2019 16:48:12 CDT by Dejon Moya [email or web address] <ELECTRONICALLY SIGNED> By: Dejon Moya MD, [facility] 05/03/19 1648 26 26 Dejon Moya MD, [facility] /EPI
--- NOTE | 2019-05-03 16:59 | CON ---
[address] [address] CONSULTATION Name: ARLENE GONZALEZ Room: [address] IN M.R.#: [id number] Admission: 04/30/19 Attend Phys: Franklin Uribe MD, F Discharge: 05/01/19 Date of : 34 Report #: [id number] THIS REPORT FOR: //name// CC: Franklin Canales DATE OF SERVICE: 04/30/2019 TYPE OF REPORT: Cardiology consultation. HISTORY OF PRESENT ILLNESS: The patient is an 83-year-old longterm patient who I was asked to see in the hospital today after he was found to have evidence of acute inferior STEMI. The history is obtained from some old records as well as the son who was present. According to the son, the patient has been in longterm for about 7 years after his since he cannot care for himself. He has a long history of diabetes and hypertension. The patient has been in a wheelchair for the past year because of weakness. He has poor memory. He usually does feed himself. He apparently was just admitted to [facility] a week ago with dehydration. Apparently, the longterm contacted the son this evening, stating that his oxygen saturation had decreased. An ambulance was called. ECG showed evidence of acute inferior STEMI. Code STEMI was activated. I was asked to see him on an emergent basis. Apparently, the patient almost never complains but there was no recent complain of chest pain or shortness of breath. He has had no recent syncope. PAST MEDICAL HISTORY: He has had appendectomy, diabetes and hypertension. Apparently during his recent hospitalization, there was a concern that the patient has been aspirating and he has been undergoing speech therapy. He has dementia. MEDICATIONS: At the longterm consist of Protonix, atenolol, glipizide, furosemide, aspirin, bupropion, albuterol inhaler, Mucinex, Ativan and potassium. ALLERGIES: He has no known drug allergies. FAMILY HISTORY: His father of heart attack. SOCIAL HISTORY: He is a nonsmoker at this time. No alcohol use. REVIEW OF SYSTEMS: Apparently, there was no history of stroke. He does have inhalers at the longterm. No history of peptic ulcer disease, kidney disease, cancer or psychiatric illness, although he did mention to the son that he was interested in ending his life recently. PHYSICAL EXAMINATION: [place] [address] CONSULTATION Name: ARLENE GONZALEZ Room: [address]#: [id number] Admission: 04/30/19 Attend Phys: Franklin Uribe MD, F Discharge: 05/01/19 Date of : 34 Report #: [id number] GENERAL: Revealed an elderly, frail-appearing male who was strapped on a stretcher, appeared in mild respiratory distress. VITAL SIGNS: He had a blood pressure of 130/60, his pulse was 50 and he was afebrile. HEENT: He was anicteric. Conjunctivae are pale. Mucous members appear dry. NECK: Veins do not appear distended. CHEST: Clear to auscultation. CARDIOVASCULAR: Irregular rhythm. ABDOMEN: Soft. EXTREMITIES: Had no edema. No dorsalis pedis pulses palpated. DIAGNOSTIC DATA: His ECG shows what appears to represent atrial fibrillation with inferior ST-segment elevation consistent with an inferior STEMI. His workup, he had a portable chest x-ray tonight showed cardiomegaly. LABORATORY DATA: He had lab work: Sodium 139, potassium 5.3, BUN 27, creatinine 1.6 and glucose 347. His liver function studies: SGOT 92, SGPT 78 and albumin 2.5. Troponin 0.99. BNP 4924. Cholesterol 203, triglyceride 125, HDL 29 and LDL 149. TSH last year was 2.0. His white blood cell count 13.6 and hemoglobin 12.3. IMPRESSION RECOMMENDATIONS: 1. Acute inferior ST-elevation myocardial infarction. Recommend urgent cardiac catheterization. However, the family does request no resuscitative measures in the event of arrest. 2. Atrial fibrillation. 3. Hypertension. The patient has been on a beta nina. 4. Diabetes. 5. Chronic kidney disease. 6. History of aspiration. 7. History of depression. Total time spent was 9 p.m. to 10 p.m. <ELECTRONICALLY SIGNED> By: Franklin Uribe MD, [facility] 05/03/19 1659 02 58Franklin Uribe MD, FAC /nt
--- NOTE | 2019-05-04 14:52 | DEA ---
[address] [address] SUMMARY Name: LISAARLENE W Room: [address] IN M.R.#: [id number] Admission: 04/30/19 Attend Phys: Franklin Uribe MD, F Discharge: 05/01/19 Date of : 34 Report #: [id number] THIS REPORT FOR: //name// CC: Franklin Canales DATE OF SERVICE: 05/01/2019 DISCHARGE DIAGNOSES: 1. Acute inferior ST segment elevation myocardial infarction. 2. Dementia. 3. Chronic kidney disease. 4. Diabetes. CONSULTANTS: None. PROCEDURES: Emergent left heart catheterization with stenting of the right coronary artery via the femoral approach. HISTORY OF PRESENT ILLNESS: The patient is an 83-year-old single white male who was brought to the Emergency Room with evidence of an inferior STEMI. The history was obtained from the patient's son who was present. The patient apparently has been in a skilled nursing for about 7 years after his and he cannot care for himself. He has a long history of diabetes and hypertension. He is basically wheelchair bound because of weakness. He has poor memory and usually does not feed himself. He was just admitted to [facility] a week ago with dehydration. There was a concern that he was aspirating. Recently, the patient has not been eating well. The skilled nursing contacted the son this evening stating that his oxygen saturations decreased. Paramedics were called. An ECG showed evidence of an acute inferior STEMI and code STEMI was activated. I was asked to see him on an emergent basis. The patient almost never speaks and the son denied any recent complaint of chest pain or shortness of breath or recent syncope. PAST MEDICAL HISTORY: Significant for previous appendectomy, diabetes and hypertension. CURRENT MEDICATIONS: Include Protonix, atenolol, glipizide, furosemide, aspirin, bupropion, albuterol inhaler, Mucinex, Ativan, potassium. ALLERGIES: He had no known drug allergies. PHYSICAL EXAMINATION: GENERAL: Revealed an elderly, cachectic male, lying in bed. He was strapped to stretcher. VITAL SIGNS: His blood pressure was 130/60, pulse is 50[place] [address] SUMMARY Name: ARLENE GONZALEZ Room: [address]#: [id number] Admission: 04/30/19 Attend Phys: Franklin Uribe MD, F Discharge: 05/01/19 Date of : 34 Report #: [id number] CHEST: Clear to auscultation. CARDIAC: Irregular rhythm. ABDOMEN: Soft. EXTREMITIES: Had no edema. DIAGNOSTIC DATA: ECG showed what appeared to represent atrial fibrillation with inferior ST segment elevation. Chest x-ray showed cardiomegaly. LABORATORY DATA: BUN 27, creatinine 1.6. Liver function studies, SGOT 92, SGPT 78, albumin 2.5. Troponin 0.99. BNP 4924. Cholesterol 203, triglyceride 125, HDL 29, LDL 149. TSH in the past has been 2.0. Hemoglobin 12.3. HOSPITAL COURSE: The patient was felt to be having acute inferior STEMI. He was taken urgently to the cardiac catheterization. I performed a cardiac catheterization from the right femoral artery. No ventriculogram was performed because of renal insufficiency. The LAD had a 90% mid stenosis and the diagonal branch had a 90% mid stenosis. The circumflex had a 90% proximal stenosis of first marginal branch. The right coronary artery appeared acutely occluded. He was given heparin and Aggrastat and I performed angioplasty of the right coronary artery. There was extensive clot noted and I performed aspiration was a Pronto catheter. Two stents were placed and he had reperfusion of the right coronary artery, although there was poor flow, this was despite given intracoronary adenosine. I felt that the onset of acute inferior infarction was unclear since the patient had no previous history of chest pain and complaints of shortness of breath. The patient was noncommunicative. The sheath was sutured in place and the patient was transferred to the Intensive Care Unit. I discussed the situation with the son. He was felt to have had a recent inferior wall myocardial infarction. His prognosis is poor. He had a very poor quality of life. It was also unclear whether the patient could actually take oral medications. The son agreed with a no code blue status and comfort measures were recommended. The patient was continued on IV fluids after his arrival in the ICU. He remained in sinus rhythm. His oxygenation was marginal. He was given a breathing treatment using albuterol. During the evening, the patient developed progressive bradycardia and hypotension. He then became unresponsive and developed pulseless electrical activity. No resuscitative measures were administered in agreement with the son's wishes. The patient was then pronounced . Son was notified. The patient was felt to have had suffered a recent inferior wall myocardial infarction and developed cardiac arrest. The patient was noted to have severe diffuse multivessel coronary artery disease and was felt to have had a bad prognosis. <ELECTRONICALLY SIGNED> By: Franklin Uribe MD, [facility] 05/04/19 1452 1655 Windy Uribe MD, FACC /nt
== END 2019-05-01 03:00 | DRG 246 ==
LOC: M.CL 19:37 → M.ERS 19:37 → M.TBA-CV 20:11 → M.CL 20:20 → M.ICU 21:45
PROVIDERS: Personal Emergency Response Attendant; ADMIT Internal Medicine Cardiovascular Disease
PROC: 4A023N7 Measurement of Cardiac Sampling and Pressure, Left Heart, Percutaneous Approach (ICD-10-PCS; principal; 2019-04-30)
PROC: B2111ZZ Fluoroscopy of Multiple Coronary Arteries using Low Osmolar Contrast (ICD-10-PCS; principal; 2019-04-30)
PROC: 027035Z Dilation of Coronary Artery, One Artery with Two Drug-eluting Intraluminal Devices, Percutaneous Approach (ICD-10-PCS; principal; 2019-04-30)
DX: I21.19 ST elevation (STEMI) myocardial infarction involving other coronary artery of inferior wall (principal); J96.01 Acute respiratory failure with hypoxia; K21.9 Gastro-esophageal reflux disease without esophagitis; F03.90 Unspecified dementia, unspecified severity, without behavioral disturbance, psychotic disturbance, mood disturbance, and anxiety; Z66 Do not resuscitate; I48.91 Unspecified atrial fibrillation; E11.22 Type 2 diabetes mellitus with diabetic chronic kidney disease; I12.9 Hypertensive chronic kidney disease with stage 1 through stage 4 chronic kidney disease, or unspecified chronic kidney disease; N18.9 Chronic kidney disease, unspecified; F32.9 Major depressive disorder, single episode, unspecified; Z86.73 Personal history of transient ischemic attack (TIA), and cerebral infarction without residual deficits; Z90.49 Acquired absence of other specified parts of digestive tract; Z79.82 Long term (current) use of aspirin; Z79.899 Other long term (current) drug therapy; Z82.49 Family history of ischemic heart disease and other diseases of the circulatory system